=== PATIENT | female | born 2000 | race Caucasian/White ===

== ENCOUNTER 2024-07-15 17:28 | Emergency (ER) | payer BC, SELFPAY ==
--- OUTSIDE RECORDS SUMMARY | 2024-07-15 17:31 | XMS_ITS | Clinical Summary ---
Author Organization [facility] Address [address] [place] [address]. [place] [address] Care Team Providers Care Candy Separator Hard Name Role Phone [facility], [facility] Primary Care Provider Allergies Active Allergy Reactions Criticality Noted Date Comments No Clinical Screening - See Comments Hives 12/23/2017 Aspertame Nuts Angioedema 12/23/2017 Medications montelukast (SINGULAIR) 10 MG tablet Take 10 mg by mouth every morning Active fluticasone (FLOVENT HFA) 110 MCG/ACT inhaler Inhale 2 puffs into the lungs 2 times daily Active albuterol (PROAIR HFA/PROVENTIL HFA/VENTOLIN HFA) 108 (90 Base) MCG/ACT inhaler Inhale 2 puffs into the lungs every 4 hours as needed for shortness of breath / dyspnea or wheezing Active albuterol (PROVENTIL) (2.5 MG/3ML) 0.083% neb solution Take 2.5 mg by nebulization every 6 hours as needed for shortness of breath / dyspnea or wheezing Active fluticasone (FLONASE) 50 MCG/ACT nasal spray [place] 1 spray into both nostrils daily as needed for rhinitis or allergies Active norethindrone-e thinyl estradiol (JUNEL 06/30) 1-20 MG-MCG tablet Take 1 tablet by mouth every evening Active ibuprofen (ADVIL/MOTRIN) 200 MG tablet Take 400 mg by mouth every 8 hours as needed for mild pain Active oxyCODONE (ROXICODONE) 5 MG tablet Take 1 tablet (5 mg) by mouth every 6 hours as needed for pain 12 tablet Active Active Problems Problem Noted Date Diagnosed Date Acute respiratory failure 10/15/2018 Social History Tobacco Use Types Packs/Day Years Used Date Smoking Tobacco: Never Smokeless Tobacco: Never Alcohol Use Standard Drinks/Week Comments Not Currently 0 (1 standard drink = 0.6 oz pur e alcohol) AUDIT-C Answer Date Recorded Frequency of Alcohol Consumption Never 10/15/2018 Average Number of Drinks Not on file 019 Frequency of Binge Drinking Not on file 12/2018 Adolescent Education Answer Date Record ed Getting School Help Needed Not on file 03/27 Comments No Sex and Gender Information Value Date Recorded Sex Assigned at Not on file Legal Sex Female 4:39 AM CUTTER GRINDER Gender Identity Not on file Sexual Orientation Not on file Last Filed Vital Signs Vital Sign Reading Time Taken Comments Blood Pressure 120/76 08/13/2020 6:13 AM CUTTER GRINDER Pulse 94 08/13/2020 6:13 AM CUTTER GRINDER Temperature 36.8 C (98.3 F) 08/13/2020 4:32 AM CUTTER GRINDER Respiratory Rate 16 08/13/2020 6:13 AM CUTTER GRINDER Oxygen Saturation 95% 08/13/2020 6:13 AM CUTTER GRINDER Inhaled Oxygen Concentration - - Weight 49.1 kg (108 lb 4.8 oz) 10/21/2018 5:00 A M CDT Height 154.9 cm (5' 1) 10/15/2018 9:46 AM CDT Body Mass Index 20.46 10/15/2018 9:46 AM CDT Plan of Treatment Not on file Insurance [employer] Medical Advance Directives For more information, please contact: [phone] * Full Code (Latest Code Status on File) Date Activated Date Inactivated Comments 10/15/2018 9:56 AM 10/21/2018 4:19 PM Question Answer Comments Code status determined by: Discussion with dc velázquez/legal decision maker Care Teams Candy Separator Hard Relationship Specialty Start Date End Date Clinic, [facility] [address] [place] [address] PCP - General 10/04/18
--- OUTSIDE RECORDS SUMMARY | 2024-07-15 17:31 | XMS_ITS | Referral Summary ---
Author Organization [facility] Address [address] [place] [address]. [place] [address] Care Team Providers Care Executive Chef Name Role Phone [facility], [facility] Primary [...] Active fluticasone (FLONASE) 50 MCG/ACT nasal spray [place] 1 spray into both nostrils daily as [...] on file Legal Sex Female 4:39 AM FISHER DIP NET Gender Identity Not on file Sexual Orientation Not on file Last Filed Vital Signs Vital Sign Reading Time Taken Comments Blood Pressure 120/76 08/13/2020 6:13 AM FISHER DIP NET Pulse 94 08/13/2020 6:13 AM FISHER DIP NET Temperature 36.8 C (98.3 F) 08/13/2020 4:32 AM FISHER DIP NET Respiratory Rate 16 08/13/2020 6:13 AM FISHER DIP NET Oxygen Saturation 95% 08/13/2020 6:13 AM FISHER DIP NET Inhaled Oxygen Concentration - - Weight 49.1 kg (108 lb 4.8 oz) 10/21/2018 5:00 A M CDT Height 154.9 cm (5' 1) 10/15/2018 9:46 AM CDT Body Mass Index 20.46 10/15/2018 9:46 AM CDT Plan of Treatment Not on file Insurance [employer] Advance Directives For more information, please contact: [phone] * Full Code (Latest Code Status on File) Date Activated Date Inactivated Comments 10/15/2018 9:56 AM 10/21/2018 4:19 PM Question Answer Comments Code status determined by: Discussion with dc velázquez/legal decision maker Care Teams Executive Chef Relationship Specialty Start Date End Date Clinic, [facility] [address] [place] [address] PCP - General 10/04/18
--- OUTSIDE RECORDS SUMMARY | 2024-07-15 17:31 | XMS_ITS | Clinical Summary ---
Author Organization [facility] Address [place], [place] [address] Care Team Providers Care Oil Transport Driver Name Role Phone Chanel Paez MD Primary Care Provider Allergies Active Allergy Reactions Criticality Noted Date Comments Unlisted Allergen (Include D etail In Comments) Hives 12/23/2017 Aspertame Tree Nuts Angioedema 12/23/2017 Medications albuterol (PROVENTIL) 0.083 % neb solutionIndicati ons:Mild persistent asthma with acute exacerbation Inhale 3 mL (2.5 mg) via a nebulizer every 4 hours if needed for Shortness of Breath 1st choice or Wheezing 2nd choice. 75 mL 4 1 Active albuterol-ipratr opium (DUONEB) (2.5-0.5 mg) in 3 mL NEBULIZATION solutionIndicati ons:Mild persistent asthma with acute exacerbation Inhale 3 mL via a nebulizer every 6 hours if needed for Shortness of Breath 1st choice. 90 mL 4 1 Active fluticasone furoate-vilanter oL (Breo Ellipta) 200-25 mcg/dose inhalation powdererIndicati ons:Mild persistent asthma with acute exacerbation Inhale 1 Puff by mouth once daily. 100 Each 3 4 Active montelukast (SINGULAIR) 10 mg tabletIndication s:Mild persistent asthma with acute exacerbation Take 1 Tablet (10 mg) by mouth at bedtime. 100 Tablet 3 4 Active norethin yuval-eth estrad-fe, 1-20 mg-mcg, (Junel FE ,) tabletIndication s:Irregular periods Take 1 Tablet by mouth once daily. 84 Tablet 4 4 Active albuterol HFA (PRO-AIR; VENTOLIN; PROVENTIL) 90 mcg/actuation inhalerIndicatio ns:Mild persistent asthma with acute exacerbation USE 1 TO 2 INHALATIONS EVERY 4 HOURS WHILE AWAKE 17 g 4 4 Active cefadroxil (DURICEF) 500 mg capsuleIndicatio ns:Acute cystitis without hematuria Take 1 Capsule (500 mg) by mouth two times daily for 7 days. 14 Capsule 4 025 Active Problems Problem Noted Date Diagnosed Date Acute cystitis without hematuria 06/10/2024 Genital herpes simplex type 1 infection 04/16/20 18 Overview (06/12/2024): confirmed via PCR Allergic rhinitis 12/06/2012 Mild persistent asthma without complication 11/10 Overview (08/26/2018): Albuterol & flonase as needed. singulair and flovent daily. Resolved Problems Problem Noted Date Diagnosed Date Resolved Date Pap smear for cervical cancer screening 06/11/2021 08/23/2022 Overview (08/04/2021): 06/2021 NIL. Plan: Pap due 06/2024 Encounter for control pills maintenance 04/16/20 17 08/23/2022 Encounters Date Type Department Care Team Description 06/10/2024 9:20 AM BUILDING CONSULTANT Office [facility] [address] [place] [address] Mohan Jamison MD Urinary Problem 06/10/2024 Travel from Last 3 Months Immunizations Name Administration Dates Next Due DTaP 05/23/2004, 2,2000,10/15,2000 HPV 9 (Gardasil 9) 09/27/2015 Hepatitis A (Peds) 12/06/2012,06/22/2009 Hepatitis B (Peds) 2000,2000, 000 Hib Conjugate, Unspecified 02/26/2001,2000 ,2000 Human Papilloma Virus Vaccine 03/24/2013, 013 Inactivated Polio Vaccine 05/23/2004,,2000,08/07 Influenza, IIV3 (Age >=3 years) 06/27/2010 MENINGOCOCCAL VACCINE 2 VIAL 2MO-55YO (MENVEO) 01/01/2017,12/06/2012 MMR 05/23/2004,11/22/2001 Pneumococcal Conj 20-valent (Prevnar 20) 08/23/2022 Pneumococcal conj 13-Valent (Prevnar 13) 05/17/2001,2000,2000,08/07 Tdap 07/06/2021,06/27/2010 Varicella Vaccine 08/05/2007,01/13/2003 Family History Medical History Relation Name Comments Allergies Father childhood Asthma Father Sleep apnea Father No Known Problems Half-Brother 1 [place] No Known Problems Half-Brother 2 Skyler Cervical cancer Half-Sister Kristin Cancer-breast Maternal Aunt 1 Cancer-breast Maternal Aunt 2 Schizophrenia Maternal Aunt 2 Cancer-colon Maternal Grandfather No Known Problems Mother Brain cancer Paternal Grandfather Anxiety disorder Sister Alice Depression Sister Alice Relation Name Status Comments Father Alive Half-Brother 1 [place] Alive Half-Brother 2 Skyler Alive Half-Sister Kristin Alive Maternal Aunt 1 Maternal Aunt 2 Maternal Grandfather Maternal Grandmother Alive Mother Alive Paternal Grandfather Paternal Grandmother Alive Sister Alice Alive Social History Tobacco Use Types Packs/Day Years Used Date Smoking Tobacco: Never Smokeless Tobacco: Never Tobacco Cessation:Counseling Given: Yes Alcohol Use Standard Drinks/Week Comments Yes 0 (1 standard drink = 0.6 oz pure alcohol) Once or twice a month; 1-2 drinks at a time Humiliation, Afraid, Rape, and Kick questionnair e Answer Date Recorded Within the last year, have y ou been afraid of your partner or ex-partner? No 08/22/2019 Within the last year, have y ou been humiliated or emotionally abused in other ways by your partner or ex-partner? No Within the last year, have y ou been kicked, hit, slapped, or otherwise physically hurt by your partner or ex-partner? No 08/22/2019 Within the last year, have y ou been raped or forced to have any kind of sexual activity by your partner or ex-partner? No 08/22/2019 PHQ-2 Answer Date Recorded PHQ-2 TOTAL SCORE 0 11/26/2023 [facility] - Occupational Stress Questionnaire Answer Date Recorded Do you feel stress - tense, restless, nervous, or anxious, or unable to sleep at night because your mind is troubled all the time - these days? Not at all 08/22/2019 Social Connections Answer Date Recorded Do you often feel lonely or isolated from those around you? 0 06/10/2024 Financial Resource Strain Answer Date R ecorded Difficulty of Paying Living Expenses 3 06/10/2024 Difficulty of Paying Living Expenses Not on file 06/10/2024 Food Insecurity Answer Date Recorded Do you worry your food will run out before you are able to buy more? 1 06/10/2024 Transportation Needs Answer Date Record ed Does lack of transportation keep you from medica l appointments? 1 06/10/2024 Does lack of transportation keep you from work, meetings or getting things that you need? 1 06/10/2024 Housing Stability Answer Date Recorded What is your housing situation today? 1 06/10/2024 Utilities Answer Date Recorded Do you have trouble paying f or utilities (for example, heat, electricity, water, phone)? 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 on file Not on file Not on file Obstetrics History Para Term AB IAB SAB Ectopic Multiple Livin g Live Births 0 0 0 0 0 0 0 0 0 0 0 Last Filed Vital Signs Vital Sign Reading Time Taken Comments Blood Pressure 142/98 06/10/2024 9:54 AM BUILDING CONSULTANT Pulse 69 06/10/2024 9:51 AM BUILDING CONSULTANT Temperature 37 C (98.6 F) 06/10/2024 9:51 AM BUILDING CONSULTANT Respiratory Rate 16 06/10/2024 9:51 AM BUILDING CONSULTANT Oxygen Saturation 96% 06/10/2024 9:51 AM BUILDING CONSULTANT Inhaled Oxygen Concentration - - Weight 59.1 kg (130 lb 3.2 oz) 06/10/2024 9:51 A M BUILDING CONSULTANT Height 155.5 cm (5' 1.22) 09/28/2022 10:11 AM C DT Body Mass Index 24.42 09/28/2022 10:11 AM CDT Plan of Treatment Health Maintenance Due Date Last Done Comments Chlamydia for age 16-24 08/24/2023 08/24/19 23, 03/08/2022, 07/06/2021, Additional history exists BMI (ht and wt on same day) for age 18+ 09/29/2023 09/28/2022, 08/23/2022, 03/08/2022, Additional history exists COVID-19 vaccine series ( season) 2024 Influenza for age 9-49 02/10/2024 06/27/2010 Pap test for age 21-65 07/06/2024 07/06/2021 Depression screening for age 12+ 11/25/2024 11/26/2023, 08/23/2022, 07/06/2021, Additional history exists Tetanus booster 07/06/2031 07/06/2021, 06/27/2010 HPV series for age 9-26 Completed 09/27/19 16, 03/24/2013, 12/06/2012 Tdap Completed 07/06/2021, 06/27/2010 HIV for age 15-65 Completed 03/08/2022, , 04/16/2018 Hepatitis C screening for ag e 18-79 Completed 03/08/2022 Pneumococcal series for age 6-49 Completed 08/23/2022, 05/17/2001, 2000, Additional history exists Procedures Procedure Name Priority Date/Time Associated Diagnosis Comments UA W/ SEDIMENT EXAM REFLEXED PER CRITERIA STAT 06/10/2024 8:51 AM BUILDING CONSULTANT Dysuria GC CHLAMYDIA TRACH PROBE Routine 08/23/2022 12:03 PM CDT Screening for chlamydial disease ANTI HIV 1/2 Routine 03/08/2022 9:35 AM CDT Screen for STD (sexually transmitted disease) ANTI HCV Routine 03/08/2022 9:35 AM CDT Screen for STD (sexually transmitted disease) SUPPLIER QUALITY THIN PREP PAP SCREEN IMAGED Routine 07/06/2021 10:00 AM BUILDING CONSULTANT Pap smear for cervical cancer screening from Last 3 Months or Most Recently Relevant to Health Maintenance Results * (ABNORMAL) IN CLINIC UA w/ Sediment Exam Reflexed per Criteria (06/10/2024 8:51 AM BUILDING CONSULTANT) COLOR ORANGE(A) YELLOW [facility] APPEARANCE CLEAR CLEAR [facility] SPECIFIC GRAVITY TNP [facility] Comment: TEST NOT PERFORMED Unable to perform testing due to color interference. WBC UA 40-60(A) < OR = 5 /HPF [facility] RBC UA 10-20(A) < OR = 2 /HPF [facility] SQUAMOUS EPITHELIAL CELLS UA 0-5 < OR = 5 /HPF [facility] BACTERIA UA MODERATE(A ) NONE SEEN /HPF [facility] Urine URINE SPECIMEN / Unknown 06/10/2024 8:51 AM BUILDING CONSULTANT 06/10/2024 8:52 AM BUILDING CONSULTANT us Mohan Jamison MD URINE Final Re sult [address] [address] * GC CHLAMYDIA TRACH PROBE (08/23/2022 12:03 PM CDT) CHLAMYDIA PROBE Negative 7:59 PM CDT [facility] N GONORRHOEAE PROBE Negative 08/23/2022 7:59 PM CDT [facility] Other URINE SPECIMEN / Unknown Non-Blood / Unknown 08/23/2022 12:03 PM CDT 08/23/2022 12:03 PM CDT Chanel Paez MD MICROBIOLOGY Final R esult Performing Organization Address City/[facility]/ZIP Co de Phone Number [facility] [address] [place] [address], [place] * ANTI HCV (03/08/2022 9:35 AM CDT) HEPATITIS C ANTIBODY Non-React scottie Non-React scottie 03/08/2022 8:19 PM CDT [facility] Comment:Antibodies to HCV no t detected; does not exclude the possibility of exposure to HCV. Blood BLOOD SPECIMEN / Unknown Venipuncture / Unknown 03/08/2022 9:35 AM CDT 03/08/2022 9:35 AM CDT Rosy Cross NP SEND OUTS Final Res ult Performing Organization Address [facility] Co de Phone Number [facility] [address] [place] [address], [place] * ANTI HIV 1/2 (03/08/2022 9:35 AM CDT) HIV-1/HIV-2 ANTIBODY Non-Reacti ve Non-Reacti ve 03/08/2022 8:13 PM CDT [facility] Comment:HIV-1 p24 and HIV-1/ HIV-2 Ab not detected. Blood BLOOD SPECIMEN / Unknown Venipuncture / Unknown 03/08/2022 9:35 AM CDT 03/08/2022 9:35 AM CDT Rosy Cross RESEARCH STAFF MEMBER SEND OUTS Final Res ult [facility] [address] [place] [address], [place] * SUPPLIER QUALITY THIN PREP PAP SCREEN IMAGED (07/06/2021 10:00 AM BUILDING CONSULTANT) Case Report Gynecologic Cytology Report Case: [id number] Authorizing Provider: Chanel Paez MD Collected: 07/06/2021 1000 Ordering Location: [facility] Received: 07/06/2021 1028 Clinic First Screen: Tres Conti Pathologist: Ellie Hamilton MD Specimen: SUPPLIER QUALITY ThinPrep Vial Screening, Cervical 07/14/2021 4:51 PM BUILDING CONSULTANT [facility] INTERPRETATION/ RESULT NEGATIVE FOR INTRAEPITHELIAL LESION OR MALIGNANCY (NIL) (none) 07/14/2021 4:51 PM BUILDING CONSULTANT [facility] R NON-NEOPLASTIC FINDING(S) Reactive cellular changes associated with inflammation/repa ir 07/14/2021 4:51 PM BUILDING CONSULTANT [facility] SPECIMEN ADEQUACY Satisfactory for evaluation Endocervical component present 07/14/2021 4:51 PM BUILDING CONSULTANT [facility] HPV REQUEST HPV if ASCUS 07/14/2021 4:51 PM BUILDING CONSULTANT [facility] Date of LMP 06/16/2021 07/14/2021 4:51 PM BUILDING CONSULTANT [facility] Last Pap Date First pap 07/14/2021 4:51 PM BUILDING CONSULTANT [facility] Last Pap Result First Pap/Unknown 4:51 PM BUILDING CONSULTANT [facility] Abnormal Pap or [place] Bx in last 5 years No 07/14/2021 4:51 PM BUILDING CONSULTANT [facility] Menstrual Status Regular Periods 07/14/2021 4:51 PM BUILDING CONSULTANT [facility] [place] Bx Done Today No 07/14/2021 4:51 PM BUILDING CONSULTANT [facility] Additional Information None given 07/14/2021 4:51 PM BUILDING CONSULTANT [facility] Comment: [facility] - [address], [place] [address] [address] [facility] - [address] [place] [address], [place] [address] and [facility] - [address], [place] [address] Interpreted at [facility] - [address] [address], [place] [address] Automated Review Successful 07/14/2021 4:51 PM BUILDING CONSULTANT [facility] Comment:Specimen processed s uccessfully by automated environmental epidemiologist device, [employer] System, [employer] Note The pap test is a screening technique, not a diagnostic procedure. It is used primarily to screen for squamous cancers and precursor lesions. Published studies have shown that it is subject to both false negative and false positive results. The pap test should not be used as the sole means to diagnose or exclude pre-malignant and malignant lesions. 07/14/2021 4:51 PM BUILDING CONSULTANT [facility] Other (Cervical) Non-Blood / Unknown 07/06/2021 10:00 AM BUILDING CONSULTANT 07/06/2021 10:28 AM BUILDING CONSULTANT us Chanel Paez MD PATHOLOGY/CYTOLOGY [place] Result [facility] [address] [place] [address], [place] from Last 3 Months or Most Recently Relevant to Health Maintenance Insurance [facility] [place] [id number] Care Teams Oil Transport Driver Relationship Specialty [place] [address] [place] [address] PCP - General Family Practice 08/23/22
--- OUTSIDE RECORDS SUMMARY | 2024-07-15 17:31 | XMS_ITS | Encounter Summary ---
Author Organization [facility] Address [address] [place] [address]. [place] [address] Care Team Providers Care Biomedical Engineering Technologist Name Role Phone Clinic, [facility] Primary Care Provider Reason for Visit * Reason Onset Date Comments Lab Result Notice 08/16/2020 Encounter Details Date Type Department Care Team (Late st Contact Info) Description 08/16/2020 Telephone [facility] [address] [place] [address] [phone] Urvashi Randall welder helper Result Notice Social History Tobacco Use Types Packs/Day Years Used Date Smoking Tobacco: Never Smokeless Tobacco: Never Alcohol Use Standard Drinks/Week Comments Not Currently 0 (1 standard drink = 0.6 oz pur e alcohol) AUDIT-C Answer Date Recorded Frequency of Alcohol Consumption Never 10/15/2018 Average Number of Drinks Not on file 019 Frequency of Binge Drinking Not on file 12/2018 Comments No Sex and Gender Information Value Date Recorded Sex Assigned at Not on file Legal Sex Female 4:39 AM HEALTH AND WELLNESS MANAGER Gender Identity Not on file Sexual Orientation Not on file COVID-19 Exposure Response Date Recorded In the last month, have you been in contact with someone who was confirmed or suspected to have Coronavirus / COVID-19? No / Unsure 08/13/2020 4:54 AM HEALTH AND WELLNESS MANAGER documented as of this encounter Miscellaneous Notes * Telephone Encounter - Urvashi Randall RN - 08/16/2020 3:12 PM CST [facility] Emergency Department/Urgent Care Lab result notification [Positive for uti and bacteria is susceptible to antibiotic]: Reason for call: Notify of Final urine culture result, confirm patient is taking antibiotic, assess symptoms, and advise per Emergency Dept/Urgent Care discharge instructions and Emergency Dept urine culture protocol. Lab Result & Date of Final Report [copied from Result Note]: Final Urine Culture Report on 08/14/20 Emergency Dept/Urgent Care discharge antibiotic prescribed: Cefpodoxime (Vantin) 200 MG tablet, 1 tablet (200 mg) by mouth 2 times daily for 10 days #1. Bacteria, 50,000 to 100,000 colonies/mL Escherichia coli , is SUSCEPTIBLE to Antibiotic. ?? As per [facility] ED Lab Result protocol, no change in antibiotic therapy. 3:25PM: Left voicemail message requesting a call back to [phone] between 10 a.m. and 6:30 p.m.for patient's ED/UC lab results. Urvashi Randall RN [facility] RN Lung Nodule and ED Lab Result RN Ruby david (ED late result f/u RN): [id number] [facility] INCIDENTAL RADIOLOGY F/U NURSES: [id number] TH AND WELLNESS MANAGER documented in this encounter Plan of Treatment Not on file documented as of this encounter Visit Diagnoses Not on filedocumented in this encounter Care Teams Biomedical Engineering Technologist Relationship Specialty Start Date End Date [facility], [facility] [place] [address] [place], [place] [id number] PCP - General 10/04/18 documented as of this encounter
[2024-07-15 17:49] VITALS: BP 147/86; PULSE 104; RESP 19; TEMP 36.9; O2SAT 99; BMI 23.6
--- NOTE | 2024-07-15 20:52 | ED.GENADULT ---
HPI - General Adult General Date Seen: 07/15/24 Chief complaint: Sore Throat Stated complaint: Strep throat Time Seen by Provider: 07/15/24 20:51 History of Present Illness HPI narrative: 24-year-old female presenting to the ER today for evaluation of sore throat. She started a sore throat yesterday and was diagnosed with strep throat a minute Clinic. She has been doing gargling with salt an apple cider vinegar or as instructed. Also started on penicillin. This morning she woke up with a cough tinged with sputum. She has not otherwise coughing. No chest pain or shortness of breath. She is having lot of pain with swallowing and has not been able to keep much liquids down. She is not able swallow any solid food at all. he also has pain in her throat when she tries to open her mouth. She is also having left ear pain. She has a temp up to 103, but was able to take some ibuprofen and temp came down prior to presentation here. She is not otherwise diabetic or immunosuppressed.. Related Data Home Medications ?Medication ?Instructions ?Recorded ?Confirmed albuterol sulfate 90 mcg/actuation inhalation 07/15/24 aerosol inhaler fluticasone furoate 200 inhalation DAILY 07/15/24 mcg-vilanterol 25 mcg/dose inhalation powder (Breo Ellipta) ibuprofen 07/15/24 montelukast 10 mg tablet mg DAILY 07/15/24 norethindrone 1 mg-ethinyl tab DAILY 07/15/24 estradiol 20 mcg (21)-iron 75 mg (7) tablet (Agata Fe 06/30 (28)) penicillin V potassium 500 mg mg 07/15/24 tablet Allergies Allergy/AdvReac Type Severity Reaction Status Date / Time No Known Drug Allergies Allergy Verified 07/15/24 17:54 PFSH PFSH Social History Smoking Status: Never smoker How often do you have a drink containing alcohol: monthly or less AUDIT-C Alcohol total score: 1 Non-prescribed substance use: denies use Exam Narrative: Exam Narrative: Constitutional: Appears well-developed and well-nourished. Alert. initially uncomfortable appear and somewhat shaky voice. However phonation is normal. No hot potato voice or stridor.. Non toxic. HENT: Head: Atraumatic. Nose: Nose normal. Mouth/Throat: Oral mucosa is clear and moist. no trismus. She has bilateral pharyngeal and tonsillar erythema. Uvula is midline. I do not see any tonsillar asymmetry to suggest LIABILITY CLAIMS ADJUSTER. She does have significant exudates on both tonsils and also possibly tonsillar stones but difficult to determine what is exudate and what stone. There is little bit adherent scabbed blood on her left tonsil which is probably bleeding this morning and causing her blood tinged sputum. Eyes: Conjunctivae normal. EOM normal. Pupils equal, round, and reactive to light. No scleral icterus. Neck: Normal range of motion. Neck supple. No tracheal deviation present. Cardiovascular: Normal rate, regular rhythm. No gallop. No friction rub. No murmur heard. Symmetric radial artery pulses Pulmonary/Chest: Effort normal. No stridor. No respiratory distress. No wheezes. No rales. No rhonchi . No tenderness. Abdominal: Soft. No HSM No distension. No mass. No tenderness. No rebound. No guarding. Musculoskeletal: RUE: Normal range of motion. No tenderness. No deformity LUE: Normal range of motion. No tenderness. No deformity RLE: Normal range of motion. No edema. No tenderness. No deformity LLE: Normal range of motion. No edema. No tenderness. No deformity Lymph: Bilateral cervical adenopathy. Neurological: Alert and oriented to person, place, and time. Normal strength. CN II-VII intact. No sensory deficit. GCS eye subscore is 4. GCS verbal subscore is 5. GCS motor subscore is 6. Normal coordination Skin: Skin is warm and dry. No rash noted. No pallor. Normal capillary refill. Psychiatric: Normal mood. Normal affect. Const: Vital Signs, click to edit/add: Vital Signs - 24 hr 07/15/24 17:49 07/15/24 21:00 07/15/24 22:45 Temperature 98.4 F 98.4 F Pulse Rate [Left P ulse Oximeter] 104 H 91 Respiratory Rate 19 19 Blood Pressure [Ri ght Upper Arm] 147/86 H 128/74 Pulse Oximetry 99 99 99 Oxygen Delivery Me thod Room Air Room Air 07/15/24 22:45 Temperature 98.4 F Pulse Rate [Left P ulse Oximeter] 91 Respiratory Rate 19 Blood Pressure [Ri ght Upper Arm] 128/74 Pulse Oximetry Oxygen Delivery Me thod Course Course ED Course: Recheck-feeling much better after pain meds, antibiotics fluids. She is tolerating ice chips and sips of water well. She is feels comfortable discharging home with her father, who is now at bedside Vital Signs Vital signs: Initial Vital Signs Temperature 98.4 F 07/15/24 17:49 Temperature Source Oral 07/15/24 17:49 Pulse Rate 104 H 07/15/24 17:49 Respiratory Rate 19 07/15/24 17:49 Blood Pressure 147/86 H 07/15/24 17:49 Blood Pressure Mean 106 H 07/15/24 17:49 Blood Pressure Position Sitting 07/15/24 17:49 Pulse Oximetry 99 07/15/24 17:49 Oxygen Delivery Method Room Air 07/15/24 17:49 Vital Signs Temperature 98.4 F 07/15/24 17:49 Pulse Rate 104 H 07/15/24 17:49 Respiratory Rate 19 07/15/24 17:49 Blood Pressure 147/86 H 07/15/24 17:49 Pulse Oximetry 99 07/15/24 17:49 Oxygen Delivery Method Room Air 07/15/24 17:49 Temperature 98.4 F 07/15/24 22:45 Pulse Rate 91 07/15/24 22:45 Respiratory Rate 19 07/15/24 22:45 Blood Pressure 128/74 07/15/24 22:45 Pulse Oximetry 99 07/15/24 22:45 Oxygen Delivery Method Room Air 07/15/24 22:45 Medications Administered Medications: Discontinued Medications Generic Name Dose Route Start Last Admin Trade Name Freq PRN Reason Stop Dose Admin Dexamethasone 10 mg 07/15/24 21:08 07/15/24 21:23 Dexamethasone 10 Mg/Ml Inj PO 07/15/24 21:09 10 mg ONCE ONE Administration Hydromorphone HCl 0.5 mg 07/15/24 21:08 07/15/24 21:24 Hydromorphone 0.5 Mg/0.5 Ml Inj IVP 0.5 mg Q1H PRN Administration Pain Sodium Chloride 1,000 mls @ 1,000 mls/hr 07/15/24 21:15 07/15/24 21:51 0.9 % Sodium Chloride 1000 Ml IV 07/15/24 22:14 Infused .Q1H TAMMY Infusion Ceftriaxone Sodium 1 gm/ 100 mls @ 200 mls/hr 07/15/24 21:08 07/15/24 21:51 Sodium Chloride IVPB 07/15/24 21:09 Infused ONCE ONE Infusion Ondansetron HCl 4 mg 07/15/24 21:08 07/15/24 21:24 Ondansetron 2 Mg/Ml Inj IVP 07/15/24 21:09 4 mg ONCE ONE Administration Medical Decision Making MDM Narrative Medical decision making narrative: 24-year-old generally healthy female diagnosed with strep pharyngitis yesterday (on 1st day of symptoms) presenting to the ER today with worsening pain in her throat, difficulty swallowing. On my evaluation he does have significant tonsillar edema and erythema but airway is patent. Treated with IV Decadron here in the ER to help bring the swelling down. Also was clinically dehydrated based on tachycardia. Received a L of IV saline here in the ER. Also pain meds for her sore throat and is now able to tolerate ice chips and feels comfortable discharging home. At this point no exam evidence for peritonsillar abscess, Lhermitte syndrome, or other suppurative complication of strep. This point I do not think she needs labs to check white count or kidney function. No murmur to suggest rheumatic fever. She feels like she can discharge home with she has a better plan for pain control. We will give her [facility] prescription for Percocet-10 tablets. (Note, I typically would prefer [place] in this case, but [place] is not stuck to the [facility] machine tonight so Percocet is our only option.) Discharge Plan Discharge Clinical Impression: Pharyngitis, streptococcal Patient Disposition: Home, Self-Care Condition: Stable Instructions: Strep Throat (DC) Additional Instructions: As we discussed, please come back to the ER right away if you have concerns especially worsening swelling in your throat, worsening difficulty swallowing, dehydration, high fever, or asymmetric swelling of your tonsils To treat your strep throat you can continue use Tylenol or ibuprofen if needed. Use the prescription pain killer (Percocet) for pain uncontrolled by the other medications. Be careful with Percocet because it causes dizziness, drowsiness, constipation, and can be addictive. Drink plenty of fluids and eat soft solid foods. Please follow-up with ENT, Dr. Muñoz. To schedule an ER follow-up appointment with Dr. Muñoz call [phone]. Prescriptions: No Action penicillin V potassium 500 mg tablet norethindrone-e.estradiol-iron [Agata Fe 06/30 (28)] 1 mg-20 mcg (21)/75 mg (7) tablet DAILY montelukast 10 mg tablet DAILY albuterol sulfate 90 mcg/actuation HFA aerosol inhaler INHALATION Patient Comments: [NO ORIGINAL SIG] fluticasone furoate-vilanterol [Breo Ellipta] 200-25 mcg/dose blister with device INHALATION DAILY ibuprofen Follow Up/Referrals: Provider,Not a Local [Primary Care Provider] - Stand Alone Forms: [employer] Info Instructions
[2024-07-15 21:00] VITALS: O2SAT 99
--- OUTSIDE RECORDS SUMMARY | 2024-07-15 21:19 | XMS_ITS | Clinical Summary ---
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 Not on file Not on file Obstetrics History Para Term AB IAB SAB Ectopic Multiple Livin g Live Births 0 0 0 0 0 0 0 0 0 0 0 Last Filed Vital Signs Vital Sign Reading Time Taken Comments Blood Pressure 142/98 06/10/2024 9:54 AM DESIGN PROJECT MANAGER Pulse 69 06/10/2024 9:51 AM DESIGN PROJECT MANAGER Temperature 37 C (98.6 F) 06/10/2024 9:51 AM DESIGN PROJECT MANAGER Respiratory Rate 16 06/10/2024 9:51 AM DESIGN PROJECT MANAGER Oxygen Saturation 96% 06/10/2024 9:51 AM DESIGN PROJECT MANAGER Inhaled Oxygen Concentration - - Weight 59.1 kg (130 lb 3.2 oz) 06/10/2024 9:51 A M DESIGN PROJECT MANAGER Height 155.5 cm (5' 1.22) 09/28/2022 10:11 [...] REFLEXED PER CRITERIA STAT 06/10/2024 8:51 AM DESIGN PROJECT MANAGER Dysuria GC CHLAMYDIA TRACH PROBE Routine 08/23/2022 12:03 PM CDT Screening for chlamydial disease ANTI HIV 1/2 Routine 03/08/2022 9:35 AM CDT Screen for STD (sexually transmitted disease) ANTI HCV Routine 03/08/2022 9:35 AM CDT Screen for STD (sexually transmitted disease) RADIOGRAPHER CARDIAC CATHETERIZATION THIN PREP PAP SCREEN IMAGED Routine 07/06/2021 10:00 AM DESIGN PROJECT MANAGER Pap smear for cervical cancer screening from Last 3 Months or Most Recently Relevant to Health Maintenance Results * (ABNORMAL) IN CLINIC UA w/ Sediment Exam Reflexed per Criteria (06/10/2024 8:51 AM DESIGN PROJECT MANAGER) COLOR ORANGE(A) YELLOW [facility] APPEARANCE CLEAR CLEAR [facility] SPECIFIC GRAVITY TNP [facility] Comment: TEST NOT PERFORMED Unable to perform testing due to color interference. WBC UA 40-60(A) < OR = 5 /HPF [facility] RBC UA 10-20(A) < OR = 2 /HPF [facility] SQUAMOUS EPITHELIAL CELLS UA 0-5 < OR = 5 /HPF [facility] BACTERIA UA MODERATE(A ) NONE SEEN /HPF [facility] Urine URINE SPECIMEN / Unknown 06/10/2024 8:51 AM DESIGN PROJECT MANAGER 06/10/2024 8:52 AM DESIGN PROJECT MANAGER us Mohan Jamison MD URINE Final Re sult [address] [address] * GC CHLAMYDIA TRACH PROBE (08/23/2022 12:03 PM CDT) CHLAMYDIA PROBE Negative 7:59 PM CDT [facility] N GONORRHOEAE PROBE Negative 08/23/2022 7:[address] [facility] Other URINE SPECIMEN / Unknown Non-Blood / Unknown 08/23/2022 12:03 PM CDT 08/23/2022 12:03 PM CDT Chanel Paez MD MICROBIOLOGY Final R esult Performing Organization Address City/[facility]/ZIP Co de Phone Number [facility] [address] [place] [address], [place] * ANTI HCV (03/08/2022 9:35 AM CDT) HEPATITIS C ANTIBODY Non-React scottie Non-React scottie 03/08/2022 8:19 PM CDT [facility] Comment:Antibodies to HCV no t detected; does not exclude the possibility of exposure to HCV. Blood BLOOD SPECIMEN / Unknown Venipuncture / Unknown 03/08/2022 9:35 AM CDT 03/08/2022 9:35 AM CDT Rosy Cross NP SEND OUTS Final Res ult Performing Organization Address [facility] Co de Phone Number [facility] [address] [place] [address], [place] * ANTI HIV 1/2 (03/08/2022 9:35 AM CDT) HIV-1/HIV-2 ANTIBODY Non-Reacti ve Non-Reacti ve 03/08/2022 8:[address] [facility] Comment:HIV-1 p24 and HIV-1/ HIV-2 Ab not detected. Blood BLOOD SPECIMEN / Unknown Venipuncture / Unknown 03/08/2022 9:35 AM CDT 03/08/2022 9:35 AM CDT Rosy Cross NITRATE OPERATOR SEND OUTS Final Res ult [facility] [address] [place] [address], [place] * RADIOGRAPHER CARDIAC CATHETERIZATION THIN PREP PAP SCREEN IMAGED (07/06/2021 10:00 AM DESIGN PROJECT MANAGER) Case Report Gynecologic Cytology Report Case: [id number] Authorizing Provider: Chanel Paez MD Collected: 07/06/2021 1000 Ordering Location: [facility] Received: 07/06/2021 1028 Clinic First Screen: Tres Conti Pathologist: Ellie Hamilton MD Specimen: RADIOGRAPHER CARDIAC CATHETERIZATION ThinPrep Vial Screening, Cervical 07/14/2021 4:51 PM DESIGN PROJECT MANAGER [facility] INTERPRETATION/ RESULT NEGATIVE FOR INTRAEPITHELIAL LESION OR MALIGNANCY (NIL) (none) 07/14/2021 4:51 PM DESIGN PROJECT MANAGER [facility] R NON-NEOPLASTIC FINDING(S) Reactive cellular changes associated with inflammation/repa ir 07/14/2021 4:51 PM DESIGN PROJECT MANAGER [facility] SPECIMEN ADEQUACY Satisfactory for evaluation Endocervical component present 07/14/2021 4:51 PM DESIGN PROJECT MANAGER [facility] HPV REQUEST HPV if ASCUS 07/14/2021 4:51 PM DESIGN PROJECT MANAGER [facility] Date of LMP 06/16/2021 07/14/2021 4:51 PM DESIGN PROJECT MANAGER [facility] Last Pap Date First pap 07/14/2021 4:51 PM DESIGN PROJECT MANAGER [facility] Last Pap Result First Pap/Unknown 4:51 PM DESIGN PROJECT MANAGER [facility] Abnormal Pap or [place] Bx in last 5 years No 07/14/2021 4:51 PM DESIGN PROJECT MANAGER [facility] Menstrual Status Regular Periods 07/14/2021 4:51 PM DESIGN PROJECT MANAGER [facility] [place] Bx Done Today No 07/14/2021 4:51 PM DESIGN PROJECT MANAGER [facility] Additional Information None given 07/14/2021 4:51 PM DESIGN PROJECT MANAGER [facility] Comment: [facility] - [address], [place] [address] and [facility] - [address] [place] [address], [place] [address] and [facility] - [address], [place] [address] Interpreted at [facility] - [address] [place] [address], [place] [address] Automated Review Successful 07/14/2021 4:51 PM DESIGN PROJECT MANAGER [facility] Comment:Specimen processed s uccessfully by automated district engineer device, [employer] System, [employer] Note The pap test is a screening technique, not a diagnostic procedure. It is used primarily to screen for squamous cancers and precursor lesions. Published studies have shown that it is subject to both false negative and false positive results. The pap test should not be used as the sole means to diagnose or exclude pre-malignant and malignant lesions. 07/14/2021 4:51 PM DESIGN PROJECT MANAGER [facility] Other (Cervical) Non-Blood / Unknown 07/06/2021 10:00 AM DESIGN PROJECT MANAGER 07/06/2021 10:28 AM DESIGN PROJECT MANAGER us Chanel Paez MD PATHOLOGY/CYTOLOGY [place] Result [facility] [address] [place] [address], [place] from Last 3 Months or Most Recently Relevant to Health Maintenance Insurance [facility] [place] [address] Care Teams Rivet Tapping Machine Operator Relationship Specialty [place] [address] [place] [address] PCP - General Family Practice 08/23/22
--- OUTSIDE RECORDS SUMMARY | 2024-07-15 21:19 | XMS_ITS | Encounter Summary ---
Author Organization [facility] Address [address] [place] [address]. [place] [address] Care Team Providers Care District Manager Major Accounts Sales Name Role Phone Clinic, [facility] Primary Care Provider Reason for Visit * Reason Onset Date Comments Lab Result Notice 08/16/2020 Encounter Details Date Type Department Care Team (Late st Contact Info) Description 08/16/2020 Telephone [facility] Emergency Dept [address] [place] [id number] [phone] Urvashi Randall director employee safety and health Result Notice Social History Tobacco Use Types [...] on file Legal Sex Female 4:39 AM CRM MARKETING MANAGER Gender Identity Not on file Sexual Orientation Not on file COVID-19 Exposure Response Date Recorded In the last month, have you been in contact with someone who was confirmed or suspected to have Coronavirus / COVID-19? No / Unsure 08/13/2020 4:54 AM CRM MARKETING MANAGER documented as of this encounter Miscellaneous Notes * Telephone Encounter - Urvashi Randall RN - 08/16/2020 3:12 PM CST [facility] Emergency Department/Urgent Care Lab result notification [Positive [...] is SUSCEPTIBLE to Antibiotic. ?? As per [facility] ED Lab Result protocol, no change in antibiotic therapy. 3:25PM: Left voicemail message requesting a call back to [phone] between 10 a.m. and 6:30 p.m.for patient's ED/UC lab results. Urvashi Randall RN [facility] RN Lung Nodule and ED Lab Result RN Ruby david (ED late result f/u RN): P [id number] [facility] INCIDENTAL RADIOLOGY F/U NURSES: P [id number] MARKETING MANAGER documented in this encounter Plan of Treatment Not on file documented as of this encounter Visit Diagnoses Not on filedocumented in this encounter Care Teams District Manager Major Accounts Sales Relationship Specialty Start Date End Date [facility], [place] [address] [place], [place] [id number] PCP - General 10/04/18 documented as of this encounter
--- OUTSIDE RECORDS SUMMARY | 2024-07-15 21:19 | XMS_ITS | Clinical Summary ---
Author Organization [facility] Address [address] [place] [address]. [place] [address] Care Team Providers Care Medical And Scientific Illustrator Name Role Phone Clinic, [facility] Primary [...] Active fluticasone (FLONASE) 50 MCG/ACT nasal spray [place] 1 spray into both nostrils daily as [...] on file Legal Sex Female 4:39 AM DELIVERY NURSE Gender Identity Not on file Sexual Orientation Not on file Last Filed Vital Signs Vital Sign Reading Time Taken Comments Blood Pressure 120/76 08/13/2020 6:13 AM DELIVERY NURSE Pulse 94 08/13/2020 6:13 AM DELIVERY NURSE Temperature 36.8 C (98.3 F) 08/13/2020 4:32 AM DELIVERY NURSE Respiratory Rate 16 08/13/2020 6:13 AM DELIVERY NURSE Oxygen Saturation 95% 08/13/2020 6:13 AM DELIVERY NURSE Inhaled Oxygen Concentration - - Weight 49.1 kg (108 lb 4.8 oz) 10/21/2018 5:00 A M CDT Height 154.9 cm (5' 1) 10/15/2018 9:46 AM CDT Body Mass Index 20.46 10/15/2018 9:46 AM CDT Plan of Treatment Not on file Insurance [employer] Advance Directives For more information, please contact: [phone] * Full Code (Latest Code Status on File) Date Activated Date Inactivated Comments 10/15/2018 9:56 AM 10/21/2018 4:19 PM Question Answer Comments Code status determined by: Discussion with dc velázquez/legal decision maker Care Teams Medical And Scientific Illustrator Relationship Specialty Start Date End Date Clinic, [place] [address] [place] [address] PCP - General 10/04/18
--- OUTSIDE RECORDS SUMMARY | 2024-07-15 21:19 | XMS_ITS | Referral Summary ---
Author Organization [facility] Address [address] [place] [address]. [place] [address] Care Team Providers Care Foundry Superintendant Name Role Phone Clinic, [facility] Primary [...] Active fluticasone (FLONASE) 50 MCG/ACT nasal spray [place] 1 spray into both nostrils daily as [...] on file Legal Sex Female 4:39 AM FORGE TENDER Gender Identity Not on file Sexual Orientation Not on file Last Filed Vital Signs Vital Sign Reading Time Taken Comments Blood Pressure 120/76 08/13/2020 6:13 AM FORGE TENDER Pulse 94 08/13/2020 6:13 AM FORGE TENDER Temperature 36.8 C (98.3 F) 08/13/2020 4:32 AM FORGE TENDER Respiratory Rate 16 08/13/2020 6:13 AM FORGE TENDER Oxygen Saturation 95% 08/13/2020 6:13 AM FORGE TENDER Inhaled Oxygen Concentration - - Weight 49.1 kg (108 lb 4.8 oz) 10/21/2018 5:00 A M CDT Height 154.9 cm (5' 1) 10/15/2018 9:46 AM CDT Body Mass Index 20.46 10/15/2018 9:46 AM CDT Plan of Treatment Not on file Insurance [employer] Advance Directives For more information, please contact: [phone] * Full Code (Latest Code Status on File) Date Activated Date Inactivated Comments 10/15/2018 9:56 AM 10/21/2018 4:19 PM Question Answer Comments Code status determined by: Discussion with dc velázquez/legal decision maker Care Teams Foundry Superintendant Relationship Specialty Start Date End Date Clinic, [place] [address] [place] [address] PCP - General 10/04/18
[2024-07-15] MEDS: 0.9 % SODIUM CHLORIDE 1000 ml 1,000 ML IV (21:22)
[2024-07-15] MEDS: dexAMETHasone 10 MG/ML inj PO (21:23)
[2024-07-15] MEDS: ONDANSETRON 2 MG/ML inj 4 MG IVP (21:24)
[2024-07-15] MEDS: HYDROmorphone 0.5 mg/0.5 ml inj IVP (21:24)
[2024-07-15] MEDS: cefTRIAXone 1 GM in 0.9 % SODIUM CHLORIDE Mini-bag 100 ML IVPB (21:25)
[2024-07-15 22:45] VITALS: BP 128/74; PULSE 91; RESP 19; TEMP 36.9; O2SAT 99
== END 2024-07-15 22:46 | disposition home or self-care (01) ==
PROVIDERS: Emergency Provider Emergency Medicine
DX: J02.0 Streptococcal pharyngitis (principal)
CPT/HCPCS: 94761; 96365; 96375; 99282; 99283; J0696; J1100; J1171; J2405; J7030